=== PATIENT | female | born 1955 | race Caucasian/White ===

== ENCOUNTER → 2016-12-02 | Outpatient (CLI) | payer BC ==
[~2016-12-02] MED LIST: CALCIUM PO; IMITREX PO; LEVOXYL PO; SYNTHROID PO
--- NOTE | ~2016-12-02 | MY11 ---
[facility] A Service of [facility] RADIOLOGY TEXT RESULTS PATIENT: TYRESE ENRIQUEZ LOCATION: [facility] : 57 UNIT #: [id number] AGE: [address]: Wu Lewis MD SEX: F ORDER DR: [id number] [address] [address] [id number] MR#: [id number] Acc #: [id number] NAME: TYRESE ENRIQUEZ : 1955 SEX: F STUDY DATE/TIME: 12/02/2016 10:23 UNIT: [facility] ROOM: STUDY DESCRIPTION: MY Mammogram Screening Dig [place] Attending Physician: Wu Lewis Jr., M.D. Referring Physician: Wu Lewis Jr., M.D. Ordering Physician: Wu Lewis Jr., M.D. Primary Care Physician: Wu Lewis Jr., M.D. MEDICAL IMAGING REPORT This report is preliminary unless electronic signature is present. EXAM Digital screening mammogram 12/02/2016 HISTORY 61-year-old woman, positive family history, 2 maternal aunts. Previous stereotactic-guided right breast biopsy. Annual screening. COMPARISON STUDIES Comparison mammograms date to 07/31/2006 with most recent 01/09/2014. FINDINGS Digital imaging of each breast was completed utilizing screening protocol. Review includes FDA-approved CAD device. Breast parenchyma is heterogeneous with a small nodular parenchymal pattern, anterior thirds of each breast. Subareolar duct ectasia is stable bilaterally. I see no dominant mass. There are no interval occurring suspicious microcalcifications and no architectural deformity. IMPRESSION Benign mammogram. Annual screening recommended. BIRADS: 2 Benign Finding. Patients over the age of 40 are entered into a reminder system with target due date for the next mammogram. A result letter will also be sent to the patient. Dictated by... Anders Coronel M.D. THIS IS AN ELECTRONICALLY VERIFIED REPORT [facility] A Service of [facility] RADIOLOGY TEXT RESULTS PATIENT: TYRESE ENRIQUEZ LOCATION: [facility] : 57 UNIT #: [id number] AGE: [address]: Wu Lewis MD SEX: F ORDER DR: Anders Coronel M.D. at 12/03/2016 8:02 AM JENIFER/mars TD: 12/02/2016 15:39 JOB #: [id number] MEDICAL IMAGING REPORT Page 1 of 1
== END | disposition home or self-care (01) ==
LOC: SMAM 09:30
DX: Z12.31 Encounter for screening mammogram for malignant neoplasm of breast (principal); Z80.3 Family history of malignant neoplasm of breast; Z98.890 Other specified postprocedural states
CPT/HCPCS: G0202